=== PATIENT | male | born 1970 | race Two or more races ===

== ENCOUNTER 2016-08-07 08:41 | Emergency (ER) | payer OTHER ==
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
== END 2016-08-07 12:05 | disposition home or self-care (01) ==
LOC: CED 08:41 → CFTX 08:41
DX: S13.4XXA Sprain of ligaments of cervical spine, initial encounter (principal); S33.5XXA Sprain of ligaments of lumbar spine, initial encounter; R51 Headache; V49.40XA Driver injured in collision with unspecified motor vehicles in traffic accident, initial encounter; Y92.410 Unspecified street and highway as the place of occurrence of the external cause
CPT/HCPCS: 70450; 72100; 72125; 99284